=== PATIENT | male | born 1955 | race Caucasian/White ===

== ENCOUNTER 2016-04-22 08:35 | Day surgery (SDC) | payer OTHER ==
--- NOTE | 2016-03-27 07:56 | HP ---
CC: Davey Newman MD; Dr. Cisneros ADMITTING HISTORY AND PHYSICAL: DATE OF ADMISSION: 04/22/16 AGE: 60 years, male. ADMITTING DIAGNOSIS: Right renal calculus. PLANNED PROCEDURES: Right stent insertion and shockwave lithotripsy of right renal calculi. SURGEON: Dr. Cisneros. HISTORY OF PRESENT ILLNESS: Abe Hinton is a 60-year-old gentleman with a longstanding history of marco a al calculus disease. He had an ultrasound done recently, which revealed a 1.4 cm calculus in the ri ght kidney and he is now being brought in for management of the same. PAST MEDICAL HISTORY: Significant for: 1. Renal calculi. 2. Asthma. MEDICATIONS ON ADMISSION: 1. Steroid inhaler. 2. Ventolin p.r.n. ALLERGIES: No known drug allergies. REVIEW OF SYSTEMS: He is otherwise in excellent health. He denies any chest pain or shortness of b reath. There is no history of diabetes mellitus or any other major systemic illness. PHYSICAL EXAMINATION GENERAL: A pleasant, healthy appearing gentleman. VITAL SIGNS: Blood pressure is 132/80, pulse 74 per minute and regular, temperature 98.4, oxygen sa turation 98% on room air. LUNGS: Clear bilaterally. CARDIOVASCULAR EXAM: Regular rate and rhythm. S1, S2. ABDOMEN: Soft without masses. IMPRESSION: A 60-year-old gentleman with a 1.4 cm calculus on a recent ultrasound in the right kid henny. Plan is for right stent insertion and shockwave lithotripsy of right renal calculus. I have d iscussed the procedure in detail including possible risks of bleeding, infection, incomplete fragmen tation and injury to the kidney. He appears to understand and wishes to proceed as planned. [id number]/[facility] #: [id number]
[~2016-04-22 08:35] MED LIST: Buffered Lidocaine 1% SYR 3ML* 3 ML/SYR SYRINGE INTRADERM ONE; Dexamethasone IV* 4 MG/ML 1 ML (4 MG) IV SLOW PU ONE; DiMENhydriNATE IV* 50 MG/ML VIAL IV PUSH PRN; Famotidine IV* 10 MG/ML 2 ML (20 mg) IV ONE; Midazolam* 1 MG/ML 2 ML VIAL (2 MG) ONE; Ondansetron INJ* 2 MG/ML VIAL IV PRN; PROCHLORPERAZINE INJ 5 MG/ML 2 ML VIAL IV PRN; fentaNYL* 50 MCG/ML 2 ML VIAL (100 MCG VIAL) IV PRN; fentaNYL* 50 MCG/ML 2 ML VIAL (100 MCG VIAL) ONE
[2016-04-22] MEDS ORDERED: Famotidine IV* 10 MG/ML 2 ML (20 mg) ONE (08:41)
[2016-04-22] MEDS ORDERED: Dexamethasone IV* 4 MG/ML 1 ML (4 MG) ONE (08:41)
[2016-04-22] MEDS ORDERED: cefTRIAXone(*) 2 GM ADDV.VIAL IVPB ONE (08:41)
--- NOTE | 2016-04-22 09:29 | RAD ---
Indication: Preop lithotripsy. Single view of the abdomen demonstrates calcifications overlying the lower pole of the right kidney measuring up to 10 mm. Gas pattern is otherwise unremarkable. Psoas margins are intact. IMPRESSION: 10 mm calculus overlying the lower pole of the right kidney.
[2016-04-22] MEDS ORDERED: Iohexol 180 (CONTRAST) 10 ML SDV IV ONE (10:43)
[2016-04-22] MEDS ORDERED: HYDROmorphone INJ* 1 MG/ML CARPUJECT SYRINGE ONE (11:09)
[2016-04-22] MEDS ORDERED: Lidocaine 2% PF * 5 ML VIAL ONE (11:14)
[2016-04-22] MEDS ORDERED: Ondansetron INJ* 2 MG/ML VIAL ONE (11:14)
[2016-04-22] MEDS ORDERED: Ketorolac INJ* 30 MG/ML 1 ML VIAL ONE (11:14)
[2016-04-22] MEDS ORDERED: Propofol* 10 MG/ML 20 ML BTL IV PUSH ONE (11:14)
[2016-04-22] MEDS ORDERED: fentaNYL* 50 MCG/ML 2 ML VIAL (100 MCG VIAL) ONE (11:16)
[2016-04-22] MEDS ORDERED: Gentamicin ADULT (*) 160 MG in NS 0.9% 100 ML* 100 ML IVPB ONE (12:00)
[2016-04-22] MEDS ORDERED: Tamsulosin CAP* 0.4 MG ONE (12:39)
[2016-04-22 13:26] VITALS: BP 100/67
--- NOTE | 2016-04-22 14:32 | RAD ---
Indication: Right ureteral stent placement. Single view of the abdomen demonstrates right ureteral stent. Multiple calcifications are noted in the lower pole of the right kidney. Pelvic ring is intact. IMPRESSION: Multiple calcifications overlying the lower pole of the right kidney. Right ureteral stent is placed.
--- NOTE | 2016-04-23 02:34 | OP ---
DATE OF OPERATION: 04/22/16 - SDS DATE OF : [birth year] - AGE: 61 years, male. SURGEON: John Paul Cisneros MD ANESTHESIOLOGIST: Dr. Franco. ANESTHESIA: General. PRE-OP DIAGNOSIS: Right renal calculi. POST-OP DIAGNOSIS: Right renal calculi. OPERATIVE PROCEDURE: 1. Cystoscopy, right retrograde pyelogram, and right ureteral stent insertion. 2. Shockwave lithotripsy of right renal calculi. COMPLICATIONS: None. STENT USED: 6-Lao stent, right ureter. OPERATIVE FINDINGS: 1. Normal-appearing urethra. 2. Mildly enlarged almost entirety median lobe enlargement of the prostate. 3. Trabeculated bladder with few small diverticula and one diverticulum posterior bladder wall with slightly yellowish crystalline appearance of mucosa. POSTOPERATIVE CONDITION: Stable. INDICATIONS: Abe Hinton is a 61-year-old gentleman who was evaluated and was noted on ultrasound to have what was described as a 1.4 cm calculus in the right kidney. He is being brought in for right stent insertion and lithotripsy and an x-ray was obtained this morning, which to me appears to show 2 calculi adjacent to each in the right kidney. DESCRIPTION OF PROCEDURE: After induction of general anesthesia, the patient was placed in dorsal lithotomy position. Sequential compression devices were in place and functioning. Initial cystoscopy revealed a normal-appearing urethra, moderate median lobe enlargement with no significant lateral lobe enlargement of the prostate. The bladder was examined. The right and left ureteral orifices were identified and were normal. The bladder michel are trabeculated with few cellules and diverticula noted. One of these in the posterior bladder wall. The mucosa appeared yellowish and almost crystalline, but no evidence of any suspicious lesions was noted. Right retrograde pyelogram was done and a 6-Lao stent was introduced and positioned with good proximal and distal positioning obtained. Next, attention was directed to the lithotripsy. There were 2 calculi adjacent to each other and these were targeted using shockwaves at a rate of 60 shocks per minute. After the initial 300 shocks, there was a pause in lithotripsy for several minutes in an effort to minimize any potential trauma to the kidney. Lithotripsy was then resumed and a total of 2200 shocks were administered. The patient tolerated the procedure satisfactorily and was transferred back to the recovery area in stable condition. CC: Dr. Davey Newman; Dr. Cisneros* [id number]/[facility] #: [id number] ERNESTO
== END 2016-04-22 13:36 | disposition home or self-care (01) ==
LOC: OR 08:35
PROVIDERS: ATTEND Urology
DX: N20.0 Calculus of kidney (principal); J45.909 Unspecified asthma, uncomplicated
CPT/HCPCS: 74000; C1876; J0696; J1100; J1170; J1580; J1885; J2250; J2405; J2704; J3010

== ENCOUNTER 2018-01-26 05:37 | Day surgery (SDC) | payer OTHER ==
--- NOTE | 2018-01-21 02:08 | HP ---
CC: Edwardo Lee MD * ADMITTING HISTORY AND PHYSICAL: DATE OF ADMISSION: 01/26/18 ADMITTING DIAGNOSIS: Right renal calculus. PLANNED PROCEDURE: Shock wave lithotripsy of right renal calculus. SURGEON: Dr. Cisneros. HISTORY OF PRESENT ILLNESS: Abe Hinton is a 62-year-old gentleman who had undergone shock wave lithotripsy approximately 2 years ago for a large right renal calculus. He was recently seen in followup and was noted to have a 1.3 cm irregular cluster of calculi in the lower pole of the right kidney and is now being brought in for repeat shock wave lithotripsy in an effort to try and more completely break up the stone to hopefully aid in the passage of the stone fragment. PAST MEDICAL HISTORY: Significant for: 1. Asthma. 2. Renal calculi. MEDICATIONS ON ADMISSION: 1. Ventolin p.r.n. 2. Asmanex inhaler. ALLERGIES: No known drug allergies. REVIEW OF SYSTEMS: He is otherwise in excellent health. There is no history of diabetes mellitus or any other major systemic illness. He denies any chest pain or shortness of breath. PHYSICAL EXAMINATION GENERAL: Reveals a pleasant healthy-appearing middle-aged gentleman. VITAL SIGNS: Blood pressure is 142/92, pulse 85 per minute, regular, oxygen saturation 96% on room air, temperature 97.3. LUNGS: Clear bilaterally. CARDIOVASCULAR: Regular rate and rhythm. S1, S2. ABDOMEN: Soft without masses. IMPRESSION: A 62-year-old gentleman with residual right lower pole calculi. Planned procedure is shock wave lithotripsy of right renal calculi. I have discussed the procedure in detail including possible risks of bleeding, infection, and complete fragmentation and obstructing fragments. PLAN: Plan is shock wave lithotripsy of right renal calculi. [id number]/[facility] #: [id number] MTDD
[2018-01-26] MEDS ORDERED: Famotidine IV* 10 MG/ML 2 ML (20 mg) IV ONE (06:00)
[2018-01-26] MEDS ORDERED: Buffered Lidocaine 0.9% SYRIN* 5 ML/SYR SYRINGE INTRADERM ONE (06:00)
[2018-01-26] MEDS ORDERED: Dexamethasone IV* 4 MG/ML 1 ML (4 MG) IV SLOW PU ONE (06:00)
[2018-01-26] MEDS ORDERED: Morphine VIAL* 10 MG/ML 1 ML VIAL ONE (06:12)
[2018-01-26] MEDS ORDERED: Dexamethasone IV* 4 MG/ML 1 ML (4 MG) ONE ×2 (06:12→06:13)
[2018-01-26] MEDS ORDERED: Famotidine IV* 10 MG/ML 2 ML (20 mg) ONE (06:13)
[2018-01-26] MEDS ORDERED: cefTRIAXone(*) 2 GM ADDV.VIAL IVPB ONE (06:13)
[2018-01-26] MEDS ORDERED: Morphine PCA ADULT* 5 MG/ML 30 ML ONE (06:27)
[2018-01-26] MEDS ORDERED: Naloxone* 0.4 MG/ML 1 ML VIAL IV PRN (07:01)
[2018-01-26] MEDS ORDERED: oxyCODONE/Acetamin 5/325 MG* TAB PO PRN (07:01)
[2018-01-26] MEDS ORDERED: DiMENhydriNATE IV* 50 MG/ML VIAL IV PUSH PRN (07:01)
[2018-01-26] MEDS ORDERED: fentaNYL* 50 MCG/ML 2 ML VIAL (100 MCG VIAL) IV PRN (07:01)
[2018-01-26] MEDS ORDERED: HYDROcodone/ACETAMIN 5-325 MG* 1 TAB PO PRN (07:01)
[2018-01-26] MEDS ORDERED: Midazolam* 1 MG/ML 2 ML VIAL (2 MG) ONE ×3 (07:16→07:53)
[2018-01-26] MEDS ORDERED: fentaNYL* 50 MCG/ML 2 ML VIAL (100 MCG VIAL) ONE (07:16)
[2018-01-26] MEDS ORDERED: Propofol* 10 MG/ML 20 ML BTL ONE (07:18)
[2018-01-26] MEDS ORDERED: Lidocaine 2% PF * 5 ML VIAL ONE (07:18)
[2018-01-26] MEDS ORDERED: Chloroprocaine 2%* 20 ML VIAL ONE (07:37)
[2018-01-26] MEDS ORDERED: Furosemide IV* 10 MG/ML 2 ML VIAL (20 MG) ONE (08:12)
[2018-01-26 10:20] VITALS: BP 133/82
--- NOTE | 2018-01-26 17:22 | OP ---
CC: Dr. Edwardo Lee * DATE OF OPERATION: 01/26/18 - SDS DATE OF : 51 SURGEON: John Paul Cisneros MD ANESTHESIOLOGIST: Dr. Jewell. ANESTHESIA: Spinal. PRE-OP DIAGNOSIS: Right renal calculi. POST-OP DIAGNOSIS: Right renal calculi. OPERATIVE PROCEDURE: Shock-wave lithotripsy of right renal calculi. INDICATIONS: Abe Hinton is a 62-year-old gentleman who was recently evaluated and noted to have an approximately 1.3 cm cluster of calculi in the lower pole of the right kidney. COMPLICATIONS: None. POSTOPERATIVE CONDITION: Stable. DESCRIPTION OF PROCEDURE: After induction of spinal anesthesia, the patient was placed on the lithotripsy table in supine position. Shock-wave lithotripsy was commenced at a rate of 60 shocks per minute. Periodic imaging revealed good localization throughout the procedure. After the initial 300 shocks, there was a pause in lithotripsy for several minutes in an effort to minimize any potential trauma to the kidney. Lithotripsy was then resumed. A total of 2400 shocks were delivered. The patient tolerated the procedure satisfactorily and was transferred back to the recovery area in stable condition. [id number]/[facility] #: [id number] MTDD
== END 2018-01-26 10:15 | disposition home or self-care (01) ==
LOC: OR 05:37
PROVIDERS: ATTEND Urology
DX: N20.0 Calculus of kidney (principal); J45.909 Unspecified asthma, uncomplicated; Z87.442 Personal history of urinary calculi
CPT/HCPCS: 74018; J0696; J1100; J1940; J2250; J2270; J2400; J2704; J3010